=== PATIENT | male | born 1955 | race Caucasian/White ===

== ENCOUNTER 2021-05-10 11:18 | Day surgery (SDC) | payer OTHER ==
[~2021-05-10] VITALS: Ht 177.8 cm; Wt 61.6 kg
--- NOTE | 2021-05-10 11:43 | NUR ---
05/10/21 Vani3 Naila Corley CALL LIGHT WITHIN REACH. TETRA DROPS AT 1138 PLEDGETT AT 1141
== END 2021-05-10 13:31 | disposition home or self-care (01) ==
LOC: ORSCSDS 11:18
PROVIDERS: Ophthalmology
PROC: 08RJ3JZ Replacement of Right Lens with Synthetic Substitute, Percutaneous Approach (ICD-10-PCS; principal; 2021-05-10 12:30)
DX: H25.11 Age-related nuclear cataract, right eye (principal); H21.81 Floppy iris syndrome
CPT/HCPCS: J2001; J2250; J3010; J3301; J7040; V2632

== ENCOUNTER → 2022-08-08 | Outpatient (CLI) | payer OTHER ==
[2022-08-08 13:56] LABS: Stool Occult Bld Immuno 1 Negative (NEGATIVE)
== END ==
LOC: LAB 11:30 → LAB SHORT 11:30
PROVIDERS: Physician Assistant
DX: Z12.11 Encounter for screening for malignant neoplasm of colon (principal)
CPT/HCPCS: G0328